=== PATIENT | female | born 2000 | race Hispanic/Latino ===

== ENCOUNTER 2019-07-17 19:02 | Emergency (ER) | payer BC ==
--- NOTE | 2019-07-17 20:03 | RAD REPORT ---
EXAM DESCRIPTION: RAD - Chest Pa And Lat (2 Views) - 07/17/2019 7:56 pm CLINICAL HISTORY: SOB COMPARISON: May 2009 TECHNIQUE: Frontal and lateral views of the chest were obtained. FINDINGS: The lungs are underinflated accentuating lung markings. Interstitial markings are prominen t for age. Lung markings are more pronounced in the anterior left lung base. Heart size is normal a nd central vasculature is within normal limits. No pleural effusion or pneumothorax seen. No acute bony finding noted. No aortic abnormality. IMPRESSION: Mild or early anterior left lung base pneumonia.
[2019-07-17] MEDS ORDERED: IBUPROFEN 400 MG TAB ONE (20:46)
--- NOTE | 2019-07-17 20:53 | ER ---
Nurse's Notes [facility] Name: Emily Robles Age: 19 yrs Sex: Female : 2000 Arrival Date: 07/17/2019 Time: 19:05 Bed 18 Private MD: Diagnosis: Pnuemonia- mild, left antior lung base Presentation: 07/17 19:22 Transition of care: patient was not received from another setting of care. Onset of ca1 symptoms was July 17, 2019. Risk Assessment: Do you want to hurt yourself or someone else? Patient reports no desire to harm self or others. Initial Sepsis Screen: Does the patient meet any 2 criteria? No. Patient's initial sepsis screen is negative. Does the patient have a suspected source of infection? No. Patient's initial sepsis screen is negative. Care prior to arrival: None. 19:22 Method Of Arrival: Ambulatory ca1 19:22 Presenting complaint: Patient states: Cough and Sore throat x 2-3 days. Fever today at ca1 101.4F. Nausea and headache today. Diarrhea yesterday. Denies vomiting at this time. 19:22 Acuity: HUMBERTO 3 ca1 Triage Assessment: 20:15 General: Appears in no apparent distress. Behavior is calm, cooperative. 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 - Coronavirus screen:: The patient has NOT traveled to [place], [place], or [place] in the past 14 days. The patient has NOT had contact with known/suspected case of Coronavirus?. - Social history:: Smoking status: Patient denies any tobacco usage or history of. - Ebola Screening: : Patient negative for fever greater than or equal to 101.5 degrees Fahrenheit, and additional compatible Ebola Virus Disease symptoms Patient denies exposure to infectious person Patient denies travel to an Ebola-affected area in the 21 days before illness onset No symptoms or risks identified at this time. Screenin:00 Abuse screen: Denies threats or abuse. Denies injuries from another. Nutritional screening: No deficits noted. Tuberculosis screening: No symptoms or risk factors identified. Fall Risk None identified. Assessment: 20:15 General: Appears in no apparent distress. Behavior is calm, cooperative, appropriate wh for age. Pain: Denies pain. Neuro: Level of Consciousness is awake, alert, obeys commands, Oriented to person, place, time, situation, Appropriate for age. Cardiovascular: Heart tones S1 S2. Respiratory: Reports cough that is Airway is patent Respiratory effort is even, unlabored, Respiratory pattern is regular, symmetrical, Breath sounds are clear bilaterally. GI: Abdomen is flat, non-distended. : No signs and/or symptoms were reported regarding the genitourinary system. EENT: Throat is pink. Derm: Skin is intact, is healthy with good turgor, Skin is pink, warm \\T\\ dry. normal. Musculoskeletal: Circulation, motion, and sensation intact. Vital Signs: 19:22 BP 114 / 80; Pulse 135; Resp 17 S; Temp 99.5(O); Pulse Ox 96% on R/A; Weight 85.28 kg; ca1 Height 5 ft. 2 in. (157.48 cm) (R); Pain 8/10; 20:30 BP 115 / 78; Pulse 108; Resp 18; Temp 98.8; Pulse Ox 99% ; wh 20:45 Pulse 107; la1 19:22 Body Mass Index 34.39 (85.28 kg, 157.48 cm) ca1 ED Course: 19:05 Patient arrived in ED. as 19:07 Kamal[facility]C [facility] la1 19:07 Ismael Toth MD is Attending Physician. la1 19:07 Curt Purcell MD is Attending Physician. la1 19:26 Triage completed. ca1 19:26 Arm band placed on right wrist. ca1 19:51 Malathi Aguirre is Primary Nurse. wh 19:54 Chest Pa And Lat (2 Views) XRAY In Process Unspecified. EDMS 20:10 Patient has correct armband on for positive identification. Bed in low position. Call wh light in reach. Side rails up X 1. Pulse ox on. NIBP on. 21:00 No provider procedures requiring assistance completed. Patient did not have IV access wh during this emergency room visit. Administered Medications: 20:53 Drug: Zithromax 500 mg Route: PO; wh 21:00 Follow up: Response: No adverse reaction wh 20:53 Drug: Motrin 800 mg Route: PO; 21:00 Follow up: Response: No adverse reaction; Temperature is decreased Outcome: 20:52 Discharge ordered by MD. [email or web address] 20:59 Patient left the ED. 21:00 Discharged to home ambulatory. 21:00 Condition: stable 21:00 Discharge instructions given to patient, family, Instructed on discharge instructions, follow up and referral plans. medication usage, POC Demonstrated understanding of instructions, follow-up care, medications, POC Prescriptions given X 1. Signatures: Dispatcher [employer] EDMS Margarita Holloway Lee, MANAGER COMPETITIVE INTELLIGENCE-C MANAGER COMPETITIVE INTELLIGENCE-Cla1 Malathi Aguirre Fani, Jade RN RN ca1 Corrections: (The following items were deleted from the chart) 19:22 Presenting complaint: Patient states: "I have been sick for 2 weeks, my kids have ca1 Flu B, my has Flu A and bronchitis. My youngest also has pneumonia. I have been having a hard time breathing and coughing really hard" Denies fever. Reports nausea ca1 19:30 19:26 LMP 06/2019 ca1 ca1 19:30 19:26 BP 159 / 81; Pulse 84bpm; Resp 17bpm; Spontaneous; Pulse Ox 99% RA; Temp 98.7F ca1 Oral; 104.33 kg Reported; Height 5 ft. 1 in. Reported; BMI: 43.4; Pain 0/10; ca1 19:40 19:22 Method Of Arrival: Ambulatory ca1 ca1 19:41 19:22 Acuity: HUMBERTO 4 ca1 ca1
--- NOTE | 2019-07-17 20:53 | EDPHYS ---
Physician Documentation [facility] Name: Emily Robles Age: 19 yrs Sex: Female : 2000 Arrival Date: 07/17/2019 Time: 19:05 Bed 18 Private MD: ED Physician Curt Purcell HPI: 07/17 22:21 This 19 yrs old Female presents to ER via Ambulatory with complaints of Fever, la1 Sore Throat, Headache. 22:21 The patient reports fever, that was measured at 101 degrees Fahrenheit. Onset: The la1 symptoms/episode began/occurred 3 day(s) ago. Modifying factors: there are no obvious modifying factors. Associated signs and symptoms: Pertinent positives: chills, cough, myalgias, sore throat. Severity of symptoms: At their worst the symptoms were mild. The patient has not experienced similar symptoms in the past. Pt reports cough, chills, mild SOB. 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 - Coronavirus screen:: The patient has NOT traveled to [place], [place], or [place] in the past 14 days. The patient has NOT had contact with known/suspected case of Coronavirus?. - Social history:: Smoking status: Patient denies any tobacco usage or history of. - Ebola Screening: : Patient negative for fever greater than or equal to 101.5 degrees Fahrenheit, and additional compatible Ebola Virus Disease symptoms Patient denies exposure to infectious person Patient denies travel to an Ebola-affected area in the 21 days before illness onset No symptoms or risks identified at this time. ROS: 22:21 Eyes: Negative for injury, pain, redness, and discharge, ENT: Negative for injury, la1 pain, and discharge, Neck: Negative for injury, pain, and swelling, Cardiovascular: Negative for chest pain, palpitations, and edema. 22:21 Abdomen/GI: Negative for abdominal pain, nausea, vomiting, diarrhea, and constipation, Back: Negative for injury and pain, MS/Extremity: Negative for injury and deformity, Skin: Negative for injury, rash, and discoloration, Neuro: Negative for headache, weakness, numbness, tingling, and seizure, Endocrine: Negative for neck swelling, polydipsia, polyuria, polyphagia, and marked weight changes. 22:21 Constitutional: Positive for chills, fever, malaise. 22:21 Respiratory: Positive for cough, with no reported sputum. Exam: 22:22 Constitutional: This is a well developed, well nourished patient who is awake, alert, la1 and in no acute distress. Head/Face: Normocephalic, atraumatic. ENT: Nares patent. No nasal discharge, no septal abnormalities noted. Tympanic membranes are normal and external auditory canals are clear. Oropharynx with no redness, swelling, or masses, exudates, or evidence of obstruction, uvula midline. Mucous membranes moist. Neck: Trachea midline, No Meningismus. Chest/axilla: Normal chest wall appearance and motion. Nontender with no deformity. No lesions are appreciated. Cardiovascular: Regular rate and rhythm with a normal S1 and S2. No gallops, murmurs, or rubs. Normal PMI, no JVD. No pulse deficits. Respiratory: Lungs have equal breath sounds bilaterally, clear to auscultation No rales, rhonchi or wheezes noted. Abdomen/GI: Soft, non-tender, with normal bowel sounds. Back: No spinal tenderness. No costovertebral tenderness. Full range of motion. Skin: Warm, dry with normal turgor. Normal color with no rashes, no lesions, and no evidence of cellulitis. MS/ Extremity: Pulses equal, no cyanosis. Neurovascular intact. Full, normal range of motion. Vital Signs: 19:22 BP 114 / 80; Pulse 135; Resp 17 S; Temp 99.5(O); Pulse Ox 96% on R/A; Weight 85.28 kg; ca1 Height 5 ft. 2 in. (157.48 cm) (R); Pain 8/10; 20:30 BP 115 / 78; Pulse 108; Resp 18; Temp 98.8; Pulse Ox 99% ; wh 20:45 Pulse 107; la1 19:22 Body Mass Index 34.39 (85.28 kg, 157.48 cm) ca1 MDM: 20:16 Patient medically screened. aaron 20:51 Data reviewed: vital signs, nurses notes, lab test result(s), radiologic studies, I la1 have discussed the patient's presentation/case with the attending Emergency Department Physician; and as a result, I will discharge patient. Data interpreted: Pulse oximetry: on room air is 96 %. Interpretation: normal. Test interpretation: by ED physician or midlevel provider: plain radiologic studies. Counseling: I had a detailed discussion with the patient and/or guardian regarding: the historical points, exam findings, and any diagnostic results supporting the discharge/admit diagnosis, the presence of at least one elevated blood pressure reading (>120/80) during this emergency department visit, radiology results, the need for outpatient follow up, a family practitioner, to return to the emergency department if symptoms worsen or persist or if there are any questions or concerns that arise at home. Special discussion: Based on the history and exam findings, there is no indication for further emergent testing or inpatient evaluation. I discussed with the patient/guardian the need to see the primary care provider for further evaluation of the symptoms. 07/17 19:28 Order name: Flu; Complete Time: 20:40 ca1 07/17 19:28 Order name: Strep; Complete Time: 20:40 ca1 07/17 19:29 Order name: Chest Pa And Lat (2 Views) XRAY; Complete Time: 20:40 la1 07/17 20:05 Order name: Throat Culture EDMS Administered Medications: 20:53 Drug: Zithromax 500 mg Route: PO; 21:00 Follow up: Response: No adverse reaction 20:53 Drug: Motrin 800 mg Route: PO; 21:00 Follow up: Response: No adverse reaction; Temperature is decreased Disposition: 07/18 06:41 Co-signature as Attending Physician, Curt Purcell MD I agree with the assessment and aaron plan of care. Disposition: 07/17/19 20:52 Discharged to Home. Impression: Pnuemonia- mild, left antior lung base. - Condition is Stable. - Discharge Instructions: Community-Acquired Pneumonia, Adult, Cough, Pediatric, Community-Acquired Pneumonia, Adult, [id number]. - Prescriptions for Zithromax 500 mg Oral Tablet - take 1 tablet by ORAL route once daily for 5 days; 5 tablet. - Medication Reconciliation Form, Thank You Letter, Antibiotic Education form. - Work release form (07/18/19 17:38). eb - Follow up: Private Physician; When: 2 - 3 days; Reason: Recheck today's complaints, Re-evaluation by your physician. Follow up: Emergency Department; When: As needed; Reason: Worsening of condition. - Problem is new. - Symptoms have improved. Signatures: Dispatcher [employer] EDMS Curt Purcell, MD MD aaron Vergara, Kamaljit, TUBING MILL OPERATOR-C TUBING MILL OPERATOR-Cla1 Malathi Aguirre Fani, Jade RN RN ca1 Lay Bejarano Corrections: (The following items were deleted from the chart) 07/17 20:59 20:52 07/17/2019 20:52 Discharged to Home. Impression: Pnuemonia- mild, left antior wh lung base. Condition is Stable. Forms are Medication Reconciliation Form, Thank You Letter, Antibiotic Education, Prescription Opioid Use. Follow up: Private Physician; When: 2 - 3 days; Reason: Recheck today's complaints, Re-evaluation by your physician. Follow up: Emergency Department; When: As needed; Reason: Worsening of condition. Problem is new. Symptoms have improved. la1
[2019-07-17] MEDS ORDERED: AZITHROMYCIN 250 MG TAB ONE (20:58)
[2019-07-17 22:55] VITALS: BP 114/80; TEMP 99.5; O2SAT 96
== END 2019-07-17 20:59 | disposition home or self-care (01) ==
LOC: ER 19:02
DX: J18.9 Pneumonia, unspecified organism (principal)
CPT/HCPCS: 71046; 87070; 87081; 87804; 99284